=== PATIENT | female | born 1995 ===

== ENCOUNTER 2018-03-16 16:45 | Emergency (ER) | payer SELFPAY ==
[2018-03-16 17:36] VITALS: BMI 34.3
[2018-03-16] MEDS ORDERED: Sodium Chloride 0.9% 1,000 ML IV ONE (18:15)
[2018-03-16 18:21] LABS: BASO # 0.1 K/uL (0.0-0.2); BASO % 0.7 % (0.0-2.0); EOS % 0.1 % (0.0-4.0); HEMOGLOBIN 13.1 g/dL (11.0-16.0); LYMPH # 1.9 K/uL (1.0-4.3); MEAN CELL VOLUME 85.2 fL (81.0-99.0); MEAN CORPUSCULAR HEMOGLOBIN 27.6 pg (27.0-31.0); MEAN CORPUSCULAR HGB CONC 32.4 g/dL (33.0-37.0); MEAN PLATELET VOLUME 8.3 fL (7.2-11.7); MONO # 0.5 K/uL (0.0-0.8); MONO % 3.1 % (0.0-10.0); NEUT # 14.9 K/uL (1.8-7.0); NEUT % 85.1 % (50.0-75.0); RBC 4.77 Mil/uL (3.80-5.20); RED CELL DISTRIBUTION WIDTH 13.2 % (11.5-14.5)
[2018-03-16 18:22] LABS: WHITE BLOOD COUNT 17.5 K/uL (4.8-10.8)
--- NOTE | 2018-03-16 18:30 | C.PDOC ---
History Of Present Illness 22 year old female, morbidly obese, presents to the emergency department with complaints of upper abdominal pain associated with 1 episode of food like vomiting and diarrhea today. Patient denies fever, chills, and sick contact. Patient reports taking a Probiotic with no relief of symptoms. <Farheen Rico - Last Filed: 03/16/18 18:58> History Per: Patient History/Exam Limitations: no limitations Onset/Duration Of Symptoms: Hrs Current Symptoms Are (Timing): Still Present Location Of Pain/Discomfort: Other (upper abdomen) Quality Of Discomfort: "Pain" Associated Symptoms: Vomiting. denies: Fever, Chills <Farheen Rico - Last Filed: 03/16/18 18:58> <Anoop Tony - Last Filed: 03/16/18 23:12> Time Seen by Provider: 03/16/18 18:01 Chief Complaint (Nursing): Abdominal Pain Past Medical History Reviewed: Historical Data, Nursing Documentation, Vital Signs Vital Signs: Last Vital Signs Temp 98.2 F 03/16/18 17:36 Pulse 71 03/16/18 17:36 Resp 18 03/16/18 17:36 BP 130/86 03/16/18 17:36 Pulse Ox 100 03/16/18 17:36 - Medical History PMH: No Chronic Diseases Surgical History: No Surg Hx Family History: States: No Known Family Hx - Social History Hx Alcohol Use: No Hx Substance Use: No - Immunization History Hx Tetanus Toxoid Vaccination: No Hx Influenza Vaccination: No Hx Pneumococcal Vaccination: No <Farheen Rico - Last Filed: 03/16/18 18:58> Vital Signs: Last Vital Signs Temp 97.8 F 03/16/18 20:09 Pulse 61 03/16/18 20:09 Resp 16 03/16/18 20:09 BP 125/83 03/16/18 20:09 Pulse Ox 100 03/16/18 20:09 <Anoop Tony - Last Filed: 03/16/18 23:12> Review Of Systems Constitutional: Negative for: Fever, Chills ENT: Negative for: Throat Pain Cardiovascular: Negative for: Chest Pain Respiratory: Negative for: Cough Gastrointestinal: Positive for: Nausea, Vomiting, Abdominal Pain, Diarrhea Genitourinary: Negative for: Dysuria Musculoskeletal: Negative for: Back Pain Skin: Negative for: Rash Neurological: Negative for: Weakness, Numbness <Farheen Rico - Last Filed: 03/16/18 18:58> Physical Exam - Physical Exam Appears: Non-toxic, No Acute Distress Skin: Normal Color, Warm, Dry Head: Atraumatic, Normacephalic Eye(s): bilateral: Normal Inspection, PERRL, EOMI Nose: Normal Oral Mucosa: Moist Neck: Normal, Supple Chest: Symmetrical, No Tenderness Cardiovascular: Rhythm Regular, No Murmur Respiratory: Normal Breath Sounds, No Rales, No Rhonchi, No Wheezing Gastrointestinal/Abdominal: Soft, Tenderness (epigastric, RUQ and LUQ tenderness), No Guarding, No Rebound, Other (obese) Back: No CVA Tenderness Neurological/Psych: Oriented x3, Normal Speech, Normal Cognition <Farheen Rico - Last Filed: 03/16/18 18:58> ED Course And Treatment - Laboratory Results Result Diagrams: 03/16/18 18:17 03/16/18 18:17 O2 Sat by Pulse Oximetry: 100 (RA) Pulse Ox Interpretation: Normal <Farheen Rico - Last Filed: 03/16/18 18:58> - Laboratory Results Result Diagrams: 03/16/18 18:17 03/16/18 18:17 Lab Results: Total Bilirubin 0.4 mg/dL (0.2-1.3) 03/16/18 18:17 AST 24 U/L (14-36) 03/16/18 18:17 ALT 25 U/L (9-52) 03/16/18 18:17 Alkaline Phosphatase 107 U/L (38-126) 03/16/18 18:17 Total Protein 8.5 g/dL (6.3-8.3) H 03/16/18 18:17 Albumin 4.7 g/dL (3.5-5.0) 03/16/18 18:17 Globulin 3.8 gm/dL (2.2-3.9) 03/16/18 18:17 Albumin/Globulin Ratio 1.3 (1.0-2.1) 03/16/18 18:17 Lipase 46 U/L (23-300) 03/16/18 18:17 Urine Color Yellow (YELLOW) 03/16/18 18:17 Urine Clarity Hazy (Clear) 03/16/18 18:17 Urine pH 5.0 (5.0-8.0) 03/16/18 18:17 Ur Specific [place] 1.027 (1.003-1.030) 03/16/18 18:17 Urine Protein 2+ mg/dL (NEGATIVE) H 03/16/18 18:17 Urine Glucose (UA) Normal mg/dL (Normal) 03/16/18 18:17 Urine Ketones Trace mg/dL (NEGATIVE) 03/16/18 18:17 Urine Blood 1+ (NEGATIVE) H 03/16/18 18:17 Urine Nitrate Negative (NEGATIVE) 03/16/18 18:17 Urine Bilirubin Negative (NEGATIVE) 03/16/18 18:17 Urine Urobilinogen Normal mg/dL (0.2-1.0) 03/16/18 18:17 Ur Leukocyte Esterase Neg Pauly/uL (Negative) 03/16/18 18:17 Urine WBC (Auto) 2 /hpf (0-5) 03/16/18 18:17 Urine RBC (Auto) 10 /hpf (0-3) H 03/16/18 18:17 Ur Squamous Epith Cells 8 /hpf (0-5) H 03/16/18 18:17 Amorphous Sediment Occ /ul (<OCC) H 03/16/18 18:17 Urine Bacteria Occ (<OCC) H 03/16/18 18:17 Pulse Ox Interpretation: Normal - CT Scan/US US Abdomen Other Rad Studies (CT/US): Read By Radiologist, Radiology Report Reviewed CT/US Interpretation: Impression: 1. Cholelithiasis, without evidence of acute cholecystitis. 2. Hepatomegaly with diffuse fatty infiltration of the liver. Reevaluation Time: 23:05 Reassessment Condition: Improved <Anoop Tony - Last Filed: 03/16/18 23:12> Medical Decision Making Medical Decision Making: Plan: Chemistry CBC Pepcid 20mg IVP NaCl IV Fluids Zofran 4mg IVP POC Urine Urinalysis US Abdomen pt with n/v/d and upper abdominal pain. likely gastroenteritis, will get ab us to eval for cholecystitis, lithiasis. will s/o to [facility] to f/u <Farheen Rico - Last Filed: 03/16/18 18:58> Disposition - Disposition Disposition Time: 18:58 <Farheen Rico - Last Filed: 03/16/18 18:58> Counseled Patient/Family Regarding: Studies Performed, Diagnosis, Need For Followup, Rx Given <Anoop Tony - Last Filed: 03/16/18 23:12> - Disposition Referrals: Jeanie Dillon MD [Staff Provider] - Disposition: HOME/ ROUTINE Condition: STABLE Additional Instructions: Please return if symptoms recur Prescriptions: Ciprofloxacin [Cipro] 1 tab PO BID #14 tab Metronidazole [Flagyl] 500 mg PO TID #21 tablet Instructions: Acute Abdomen (Belly Pain), Adult (DC), Gallstones (DC) Forms: [employer] (Greenlandic) Print Language: LITHUANIAN - Clinical Impression Clinical Impression: Abdominal pain, Gallstones - PA / SHRUB GROWER / Resident Statement MD/DO has reviewed & agrees with the documentation as recorded. - Scribe Statement The provider has reviewed the documentation as recorded by the Scribe All medical record entries made by the Scribe were at my direction and personally dictated by me. I have reviewed the chart and agree that the record accurately reflects my personal performance of the history, physical exam, medical decision making, and the department course for this patient. I have also personally directed, reviewed, and agree with the discharge instructions and disposition. <Farheen Rico - Last Filed: 03/16/18 18:58> Physician Patient Turnover Patient Signed Over To: Anoop Tony Handoff Comments: f/u labs, sonogram and disposition <Farheen Rico - Last Filed: 03/16/18 18:58>
[2018-03-16 18:34] LABS: ALB/GLOB RATIO 1.3 (1.0-2.1); ALBUMIN 4.7 g/dL (3.5-5.0); ALT/SGPT 25 U/L (9-52); AST/SGOT 24 U/L (14-36); BLOOD UREA NITROGEN 7 mg/dL (7-17); CALCIUM 9.5 mg/dl (8.6-10.4); GFR NON-AFRICAN AMERICAN > 60; LIPASE 46 U/L (23-300); SQUAMOUS EPITHIAL 8 /hpf (0-5); URINE AMORPHOUS SEDIMENT OCC /ul (<OCC); URINE BACTERIA OCC (<OCC); URINE BILIRUBIN NEGATIVE (NEGATIVE); URINE BLOOD 1+ (NEGATIVE); URINE CLARITY Hazy (Clear); URINE COLOR Yellow (YELLOW); URINE GLUCOSE (UA) NORMAL (Normal); URINE LEUKOCYTE ESTERASE NEG Leu/uL (Negative); URINE PROTEIN 2+ mg/dL (NEGATIVE); URINE UROBILINOGEN NORMAL mg/dL (0.2-1.0)
[2018-03-16] MEDS ORDERED: Piperacillin/Tazobact 3.375 gm 100 ML IVPB STA (21:31)
[2018-03-16] MEDS ORDERED: Piperacillin/Tazobact 3.375 gm 100 ML IVPB ONE (21:44)
[2018-03-16] MEDS ORDERED: Iodixanol 320 MG/ML 100 ML BOTTLE IV ONE (21:49)
[2018-03-16 23:48] VITALS: BP 132/80; PULSE 79; RESP 18; TEMP 98.7; O2SAT 96
--- NOTE | 2018-03-17 08:43 | CT ---
CT abdomen and pelvis HISTORY: Abdominal pain. COMPARISON: Ultrasound dated 03/16/2018 TECHNIQUE: Multiple contiguous axial images were performed through the abdomen and pelvis with the use of intravenous contrast. Subsequently, sagittal coronal reformatted images were obtained. This CT exam was performed using one or more of the following dose reduction techniques: Automated exposure control, adjustment of the mA and/or kV according to patient size, and/or use of iterative reconstruction technique. Findings: Mild atelectasis at the lung bases. No pleural or pericardial effusion. Prominent liver with mild fatty infiltration. 1.7 centimeter rounded enhancing foci/lesions seen within the periphery of the right hepatic lobe on series 3, image 38, indeterminate. Correlation with multiphasic contrast enhanced CT scan or MRI would be helpful for further evaluation of this lesion. Distended gallbladder. Cholelithiasis. Spleen is preserved. Adrenal glands are preserved. Pancreas is preserved. Upper abdominal bowel is preserved. Right kidney: No calculi or hydronephrosis. Left Kidney: No calculi or hydronephrosis. Urinary bladder is preserved. Heterogeneous uterus and bilateral adnexa. Underdistended left hemicolon. Appendix is visualized partially visualized and grossly preserved. Few shotty para-aortic lymph nodes. Osseous structures are grossly preserved. Impression: 1. Cholelithiasis. Correlation with right upper quadrant abdominal ultrasound and/or nuclear medicine study may be helpful if clinically indicated to evaluate for possible cholecystitis. Clinical correlation. 2. Prominent liver with diffuse fatty infiltration. 3. 1.7 centimeter enhancing rounded foci/lesion within the periphery of the right hepatic lobe, indeterminate. Correlation with multiphasic contrast enhanced CT or MR is recommended for further evaluation of this lesion. Additional findings as above. A preliminary report was generated at 10:46 p.m. on 03/16/[address] Mason Damon from [email or web address]. Please note this case was placed in the PA review folder.
--- NOTE | 2018-03-17 10:18 | US ---
Date of service: 03/16/2018 HISTORY: upper abdomen, pain n/v/d COMPARISON: No ultrasound available for direct comparison. TECHNIQUE: Sonographic evaluation of the right upper quadrant of the abdomen. FINDINGS: LIVER: Measures 23.6 cm in length. Echogenic liver may be seen in setting of hepatic parenchymal disease or fatty infiltration. No focal hepatic mass identified. The main portal vein appears patent with normal directional flow. No intrahepatic bile duct dilatation. GALLBLADDER: Gallstones. No gallbladder wall thickening or pericholecystic edema. Negative sonographic Driver's sign as assessed by the odd ticket clerk. COMMON BILE DUCT: Measures 5 mm. PANCREAS: Not well-visualized. RIGHT KIDNEY: Measures approximately 11.2 x 4.9 x 5.4 cm. No obstructing calculus or hydronephrosis identified. AORTA: Limited visualization appears grossly unremarkable. IVC: Limited visualization appears grossly unremarkable. OTHER FINDINGS: None . IMPRESSION: Hepatomegaly. Echogenic liver may be seen in setting of hepatic parenchymal disease or fatty infiltration. Cholelithiasis. Preliminary impression was provided by [employer].
== END 2018-03-16 23:48 | disposition home or self-care (01) ==
LOC: C.ER 16:45
DX: K80.20 Calculus of gallbladder without cholecystitis without obstruction (principal); R10.13 Epigastric pain
CPT/HCPCS: 74177; 76705; 80053; 81001; 81025; 83690; 85025; 96361; 96374; 96375; 99285; J2405; J2543; J7030; Q9967

== ENCOUNTER 2018-03-19 11:11 | Inpatient (IN) | payer SELFPAY | END 2018-03-21 18:45 | disposition home or self-care (01) | LOC: C.ER 11:11 → C.9E 19:39 → C.3T 21:11 ==